=== PATIENT | female | born 1960 | race Caucasian/White ===

== ENCOUNTER 2020-09-12 19:59 | Emergency (ER) | payer OTHER ==
[2015-09-21 05:35] VITALS: BP 144/67
[~2020-09-12 19:59] MED LIST: LISI20TA18 PO
== END 2020-09-12 20:10 | disposition left against medical advice (07) ==
LOC: ER 19:59
DX: M79.645 Pain in left finger(s) (principal); Z53.21 Procedure and treatment not carried out due to patient leaving prior to being seen by health care provider